=== PATIENT | female | born 1990 | race Two or more races ===

== ENCOUNTER 2025-07-01 09:00 | Day surgery (SDC) | payer OTHER ==
[2025-06-27 08:08] LABS: URINE APPEARANCE Clear; URINE BILIRRUBIN Negative (NEGATIVE); URINE BLOOD Negative; URINE COLOR Yellow; URINE GLUCOSE Negative (NEGATIVE); URINE KETONE Trace (NEGATIVE); URINE LEUKOCYTE Negative; URINE NITRATE Negative; URINE PROTEIN Negative (NEGATIVE); URINE UROBILINOGEN 0.2 E.U./dl
[2025-06-27 08:10] LABS: BASO % 0.4 % (0.1-1.2); EOS # 0.07 (0.04-0.54); EOS % 1.0 % (0.7-7.0); LYMPH # 1.74 (1.18-3.74); LYMPH % 25.6 % (19.3-53.1); MEAN PLATELET VOLUME 10.00 fl (9.4-12.4); MONO # 0.43 (0.24-0.82); MONO % 6.3 % (4.7-12.5); NEUT # 4.51 (1.56-6.13); NEUT % 66.4 % (34.0-71.1); RED CELL DISTRIBUTION WIDTH 12.1 % (11.6-14.4)
[2025-06-27 08:12] LABS: URINE BACTERIA 302.3 uL (0.0-1933); URINE EPITHELIAL CELLS 24.1 uL (0.0-38.8); URINE RBC 4.1 uL (0.0-20.8); URINE WBC 5.6 uL (0.0-23.2)
[2025-06-27 08:19] LABS: URINE CAST 0.14 uL (0.0-1.40)
[2025-06-27 08:48] LABS: INR 1.0
[2025-06-27 08:59] LABS: ALT/SGPT 16.0 U/L (12-78); AST/SGOT 7.0 U/L (15-37); BILIRUBIN TOTAL 1.02 mg/dL (0.3-1.2); BUN CREA RATIO 21.0 (7.0-25.0); CREATININE SERUM 0.68 mg/dL (0.55-1.02); GFR 99.04; GLOBULINA 3.5 G/DL (2.4-3.5); GLUCOSE FASTING 74.0 mg/dL (65-100); OSMOLALITY SERUM 279.0 MOSM/KG (275-295)
[~2025-07-01] VITALS: Ht 152.4 cm; Wt 5.0 kg
[~2025-07-01 09:00] MED LIST: FOLIC ACID20 MG; OMEGA-31000 MG PO; VITAMIN D; ZOVIRAX400 MG
[2025-07-01] MEDS ORDERED: CEFAZOLIN SODIUM 1,000 MG VIAL IV SCH (17:45)
[2025-07-01] MEDS ORDERED: SUGAMMADEX SODIUM 200 MG/2 ML VIAL IV ONE (17:45)
[2025-07-01] MEDS ORDERED: MORPHINE SULFATE 4 MG/ML VIAL IV ONE (18:05)
[2025-07-01 23:28] VITALS: BP 121/64; O2SAT 100
== END 2025-07-01 20:00 | disposition home or self-care (01) ==
LOC: OB/GYN 09:00 → O/R 09:00 → CIR.AMB 09:00 → O/R 17:43 → OB/GYN 17:43 → O/R 19:10 → CIR.AMB 20:00 → OB/GYN 20:45 → EDSTATUS 20:45
PROVIDERS: ATTEND Obstetrics & Gynecology
DX: N80.122 Deep endometriosis of left ovary (principal); N80.112 Superficial endometriosis of left ovary; N83.291 Other ovarian cyst, right side; R10.2 Pelvic and perineal pain

== ENCOUNTER → 2025-10-24 | Emergency (ER) | payer OTHER ==
[~2025-10-24] VITALS: Ht 165.1 cm; Wt 68.9 kg
[~2025-10-24] MED LIST changes: +BACTRIM DS TAB1 EACH PO; +CEFTRIAXONE SODIUM 1,000 MG VIAL IM ONE; +CEFTRIAXONE SODIUM 1,000 MG VIAL ONE; +KETOROLAC TROMETHAMINE 60 MG VIAL IM ONE; +NORFLEX100MG PO; +PEPCID AC20 MG PO; +TAMSULOSIN HCL 0.4 MG CAP PO ONE; +TAMSULOSIN HCL0.4 MG PO
[2025-10-24 12:33] LABS: BASO % 0.2 % (0.1-1.2); EOS # 0.04 (0.04-0.54); EOS % 0.3 % (0.7-7.0); LYMPH # 1.40 (1.18-3.74); LYMPH % 11.0 % (19.3-53.1); MEAN PLATELET VOLUME 9.40 fl (9.4-12.4); MONO # 0.82 (0.24-0.82); MONO % 6.4 % (4.7-12.5); NEUT # 10.40 (1.56-6.13); NEUT % 81.7 % (34.0-71.1); RED CELL DISTRIBUTION WIDTH 12.0 % (11.6-14.4)
[2025-10-24 13:21] LABS: URINE APPEARANCE Clear; URINE BILIRRUBIN Negative (NEGATIVE); URINE BLOOD Trace; URINE COLOR Dark Yellow; URINE GLUCOSE Negative (NEGATIVE); URINE KETONE Negative (NEGATIVE); URINE LEUKOCYTE Trace; URINE NITRATE Negative; URINE PROTEIN Negative (NEGATIVE); URINE UROBILINOGEN 0.2 E.U./dl
[2025-10-24 13:24] LABS: URINE BACTERIA 932.3 uL (0.0-1933); URINE EPITHELIAL CELLS 26.2 uL (0.0-38.8); URINE RBC 7.2 uL (0.0-20.8); URINE WBC 13.1 uL (0.0-23.2)
[2025-10-24 13:29] LABS: URINE CAST 0.14 uL (0.0-1.40)
[2025-10-24 14:12] LABS: ALT/SGPT 15 U/L (12-78); AST/SGOT 7 U/L (15-37); BILIRUBIN TOTAL 1.71 mg/dL (0.3-1.2); BUN CREA RATIO 16 (7.0-25.0); CREATININE SERUM 0.70 mg/dL (0.55-1.02); GFR 95.22; GLOBULINA 3.6 G/DL (2.4-3.5); GLUCOSE FASTING 74 mg/dL (65-100); OSMOLALITY SERUM 277 MOSM/KG (275-295)
[2025-10-24 14:14] LABS: HCG QUANTITATIVE < 1 mUI/mL (1-3)
== END | disposition home or self-care (01) ==
LOC: ER 10:33
PROVIDERS: General Practice
DX: N20.0 Calculus of kidney (principal); R30.0 Dysuria